=== PATIENT | female | born 1970 | race Caucasian/White ===

== ENCOUNTER 2023-03-13 08:02 | Outpatient (CLI) | payer BC | END 2023-03-13 08:03 | disposition home or self-care (01) | LOC: CSHMAMMO 08:02 | PROVIDERS: ATTEND Nurse Practitioner Family | DX: Z12.31 Encounter for screening mammogram for malignant neoplasm of breast (principal) | CPT/HCPCS: 77063; 77067 ==

== ENCOUNTER 2023-05-14 20:14 | Observation (INO) | payer BC ==
[2023-05-14] MEDS ORDERED: Calcium Carbonate 500 MG ChewTAB PO PRN (20:46)
[2023-05-14] MEDS ORDERED: Guaifenesin DM 100-10/5 ML UDCUP PO PRN (20:46)
[2023-05-14] MEDS ORDERED: Senokot S 8.6-50 MG TAB PO PRN (20:46)
[2023-05-14] MEDS ORDERED: HYDROcodone/Acetaminophen 5/325 mg Tablet PO PRN (20:46)
[2023-05-14] MEDS ORDERED: Ondansetron PF 4 MG/2 ML Vial IVP PRN (20:46)
[2023-05-14] MEDS ORDERED: Acetaminophen 325 MG TAB PO PRN (20:46)
[2023-05-14] MEDS ORDERED: Nitroglycerin 0.4 MG TAB (25 Tab Bottle) SL PRN (20:48)
[2023-05-14] MEDS ORDERED: Metoprolol Tartrate 25 MG TAB PO SCH (21:00)
[2023-05-14] MEDS ORDERED: Atorvastatin Calcium 40 MG TAB PO SCH (21:00)
[2023-05-14] MEDS ORDERED: Famotidine/PF 20 mg/2ml Vial SLOW IVP SCH (21:00)
[2023-05-14 21:21] VITALS: BMI 32.7
[2023-05-14 22:12] LABS: Troponin I Less than 0.010 ng/mL (< 0.028)
[2023-05-14] MEDS: Citalopram 20 MG TAB PO SCH (22:24)
[2023-05-14] MEDS: BuPROPion XL 150 MG ER.TAB PO SCH (22:24)
[2023-05-14] MEDS: Zolpidem Tartrate 5 MG TAB PO PRN (22:42)
[2023-05-15 04:18] LABS: Cardiac Risk 5.9 (Less than 4.5)
[2023-05-15] MEDS: Metoprolol Tartrate 25 MG TAB PO SCH ×2 (08:23→21:18)
[2023-05-15] MEDS: Aspirin 81 mg Enteric Coated Tablet PO SCH (08:23)
[2023-05-15 13:38] LABS: Troponin I Less than 0.010 ng/mL (< 0.028)
[2023-05-15] MEDS ORDERED: Sodium Chloride 0.9% 1,000 ML IV SCH (18:30)
[2023-05-15] MEDS ORDERED: Rosuvastatin 10 MG TAB PO SCH (21:00)
[2023-05-15] MEDS: BuPROPion XL 150 MG ER.TAB PO SCH (21:16)
[2023-05-15] MEDS: Citalopram 20 MG TAB PO SCH (21:16)
[2023-05-15] MEDS: Zolpidem Tartrate 5 MG TAB PO PRN (21:17)
[2023-05-16 06:32] LABS: Troponin I Less than 0.010 ng/mL (< 0.028)
[2023-05-16 08:57] VITALS: BP 104/55; TEMP 98
[2023-05-16] MEDS: Metoprolol Tartrate 25 MG TAB PO SCH (09:46)
[2023-05-16] MEDS: Aspirin 81 mg Enteric Coated Tablet PO SCH (09:50)
== END 2023-05-16 12:30 | disposition home or self-care (01) ==
LOC: INTOOBSV 20:14 → CSHTELE 20:14
PROVIDERS: ADMIT Student in an Organized Health Care Education/Training Program; ATTEND Nurse Practitioner Family
DX: R07.2 Precordial pain (principal); E78.5 Hyperlipidemia, unspecified; F32.9 Major depressive disorder, single episode, unspecified; E66.01 Morbid (severe) obesity due to excess calories; F41.9 Anxiety disorder, unspecified; Z79.899 Other long term (current) drug therapy; Z98.890 Other specified postprocedural states; Z87.891 Personal history of nicotine dependence; Z82.49 Family history of ischemic heart disease and other diseases of the circulatory system; Z79.82 Long term (current) use of aspirin; Z68.32 Body mass index [BMI] 32.0-32.9, adult
CPT/HCPCS: 36415; 80061; 84443; 84484; 85379; 93005; 93010; 93306; 96374; G0378; J7050; S0028